=== PATIENT | male | born 2000 | race Two or more races ===

== ENCOUNTER 2023-01-18 12:48 | Emergency (ER) | payer MEDICAID, SELFPAY ==
--- NOTE | ~2023-01-18 | US_ITS ---
EXAMINATION: US SCROTUM CLINICAL INFORMATION: Testicular pain rule out torsion. COMPARISON: None available. TECHNIQUE: A sonogram of the scrotum was performed assessing izquierdo-scale appearance and color Doppler flow. Spectral Doppler analysis of the arterial and venous flow were performed in the testes bilaterally. FINDINGS: RIGHT: Right testicle measures 3.9 x 1.9 x 3.3 cm, volume 13 mL. No focal testicular parenchymal lesions are visualized. Spectral Doppler analysis of the arterial and venous flow is normal in the right testis. Right epididymal head is normal in size. Mild varicocele. Right epididymal Doppler flow is normal. LEFT: Left testicle measures 4.4 x 1.8 x 3.1 cm, volume 12.7 mL. No focal testicular parenchymal lesions are visualized. Spectral Doppler analysis of the arterial and venous flow is normal in the left testis. Left epididymal head is normal in size. Mild varicocele. Left epididymal Doppler flow is normal. US/US scrotum doppler IMPRESSION: * Mild bilateral varicoceles. Otherwise normal testicular ultrasound. * No ultrasound evidence of testicular torsion.
--- NOTE | ~2023-01-18 | CT_ITS ---
EXAMINATION: CT abdomen pelvis wo IV con CLINICAL INFORMATION: Reason for Exam hematuria, LLQ pain COMPARISON: No prior CT available for comparison. TECHNIQUE: Multidetector volumetric imaging was performed from the superior aspect of the liver through the pubic symphysis , noncontrasted study. Sagittal and coronal reformatted images were obtained on the technologist's workstation. This CT examination was performed using dose optimization techniques as appropriate, variously including the following: *Automated exposure control *Adjustment of mA and/or kV according to patient size (this includes techniques or standardized protocols for targeted exams where dose is matched to indication/reason for exam; i.e. extremities or head) *Use of iterative reconstruction technique DLP: 438 mGy-cm FINDINGS: LOWER THORAX: Included lung bases are clear. HEPATOBILIARY: No focal hepatic lesions. No biliary ductal dilatation. GALLBLADDER: Gallbladder unremarkable. SPLEEN: Spleen is normal in size. PANCREAS: No focal mass or ductal dilatation. STOMACH AND GASTROINTESTINAL TRACT: Stomach is grossly unremarkable. Mild circumferential wall thickening low attenuation of the descending and sigmoid colon, this is nonspecific CT finding and could be sequela of chronic or subclinical and/or prior colitis. No evidence of acute diverticulitis. No obstruction. Surgical sutures in the cecum probably from prior appendectomy. ADRENALS: No adrenal nodules. KIDNEYS/URETERS: No hydronephrosis, stones or solid mass lesions. URINARY BLADDER: Partially decompressed. PELVIC VISCERA: Unremarkable PERITONEUM: No free air or fluid. LYMPH NODES: No lymphadenopathy. VASCULAR:Abdominal aorta normal in size, no aneurysm found. BONES, ABDOMINAL WALL AND SOFT TISSUES: Age-appropriate changes of the spine and skeletal system, no destructive osteolytic or osteosclerotic bone lesion found CT/CT abdomen pelvis wo IV con IMPRESSION: * No CT evidence of kidney stones or hydronephrosis. * Mild circumferential wall thickening low attenuation of the descending and sigmoid colon, this is nonspecific CT finding and could be sequela of chronic or subclinical and/or prior colitis. No evidence of acute diverticulitis. * Surgical sutures in the cecum probably from prior appendectomy.
[2023-01-18 13:06] VITALS: BP 130/87; PULSE 104; RESP 18; TEMP 36.8; O2SAT 98; BMI 25.9
--- NOTE | 2023-01-18 13:06 | ED_ITS ---
HPI - General Adult General Chief complaint: Abdominal Pain Stated complaint: Blood in urine/lower abd pain Time Seen by Provider: 01/18/23 13:33 Source: patient Mode of arrival: ambulatory Limitations: no limitations History of Present Illness HPI narrative: 22-year-old male previously healthy here with complaints of left lower abdominal pain which radiates the left testicle with waking this morning with hematuria. Patient denies any dysuria, urinary frequency, urinary urgency, penile discharge, rashes, lesions, fevers, chills, vomiting, diarrhea, constipation. Patient reports that he has had a new sexual partner and he would like to be tested for STDs. Related Data Previous Rx's Medication Instructions Recorded ibuprofen 600 mg tablet 600 mg PO Q8H PRN pain #30 tabs 01/18/23 tamsulosin 0.4 mg capsule (Flomax) 0.4 mg PO DAILY #30 caps 01/18/23 Allergies Allergy/AdvReac Type Severity Reaction Status Date / Time morphine Allergy Intermediate Unknown Verified 01/18/23 13:04 Review of Systems 2 Review of Systems: Yes all other systems are reviewed and are negative Constitutional: Constitutional: Reports no additional constitutional complaints, Denies body ache(s), Denies chills, Denies fever(s), Denies headache(s) and Denies weakness Eyes: Eyes: Reports no additional eye complaints and Denies change in vision ENT: Reports system reviewed and no additional complaints, except as documented, Denies dizziness, Denies headache(s), Denies nasal congestion, Denies nasal discharge and Denies neck pain Cardiovascular: Cardiovascular: Reports no additional cardiovascular complaints, Denies chest pain, Denies leg edema and Denies dyspnea Respiratory: Respiratory: Reports no additional respiratory complaints, Denies cough and Denies dyspnea Gastrointestinal: Gastrointestinal: Reports no additional gastrointestinal complaints, Reports abdominal pain, Denies diarrhea, Denies nausea and Denies vomiting Genitourinary: Genitourinary: Reports hematuria, Reports testicular pain and Denies urinary incontinence Musculoskeletal: Musculoskeletal: Reports no additional musculoskeletal complaints, Denies back pain, Denies arthralgias, Denies joint swelling, Denies neck pain, Denies numbness and Denies tingling Integumentary/Breasts: Skin/Breast: Reports system reviewed and no additional complaints, except as docu and Denies rash Neurologic: Reports system reviewed and no additional complaints, except as documented, Denies Abnormal speech present, Denies dizziness, Denies headache(s), Denies numbness, Denies tingling and Denies weakness PMFSH Past Medical History Attestation statement: The following information was validated with the patient. Source: old records reviewed and nursing notes reviewed Social History Social History Advance Directives: No Advance Directives Information Provided: No Physical Exam ED Vital Signs: Vital Signs - 24 hr 01/18/23 13:06 Temperature 98.2 F Pulse Rate 104 H Respiratory Rate 18 Blood Pressure 130/87 Pulse Oximetry 98 Oxygen Delivery Method Room Air BMI result Body Mass Index 25.9 Const General: cooperative, healthy appearing, comfortable and no acute distress Orientation/consciousness: patient oriented x3 Limitations: no limitations HENMT Head: Yes normal to inspection Ears: hearing grossly normal bilaterally General nose exam: Normal external nose present Face and sinus: Yes normal facial exam Mouth: Normal oral and palatal mucosa present Throat: Yes posterior oropharynx normal Eyes General: appearance normal, both eyes and all related structures Pupils: Equal, round and reactive pupils present Neck Neck: Yes normal visual inspection Chest Chest palpation & inspection: normal inspection of the chest Resp Effort & Inspection: normal respiratory effort Auscultation: clear to auscultation bilaterally Cardio Rate: regular rate Rhythm: regular rhythm Peripheral pulses: Peripheral pulses 2+ throughout GI Inspection: Yes normal to inspection Palpation (GI): Soft to palpation and Tenderness to palpation present (GI) (Mild tenderness left lower quadrant with no rebound or guarding) Auscultation: normal bowel sounds Male General Exam: Yes normal external exam Scrotum: scrotum normal Testes: testicular tenderness (Mild left) Back/Spine/Pelvis Thoracic/Lumbar Spine: thoracic and lumbar spine normal to inspection Skin General skin exam: no rashes or lesions noted Neuro General: patient oriented x3, no focal motor deficits and normal sensation to monofilament Cranial nerves: Yes Equal, round and reactive pupils present Cognition (Neuro): normal cognition Speech: No Abnormal speech present Gait exam (Neuro): Normal gait present Motor exam (neuro): 5/5 motor strength present throughout Extrem General: Yes normal to inspection Course Course Course Narrative: This is an RME: Additional HPI, ROS, PE not included below will be deferred to primary provider. This is a [id number]-male, with a hx of asthma, presenting to the emergency department for evaluation of hematuria and left lower quadrant pain since this morning. Patient states that he woke up with left testicular pain, and right lower quadrant pain. He states that he urinated and noticed blood in his urine. He endorses some nausea. Admits that he drank half a gallon of bryce last night. No testicular swelling. He is sexually active. Plan: Labs, UA, CT abdomen pelvis Reevaluation(s) Reevaluation #1: . The patient's reports with him including the you ultrasound Nathan labs and CT scan. There was no obvious obstructive uropathy during the CT scan, however there was lot of blood in the urine. He reports seeing ?black particles when I urinated while in the ED. ? it is possible he passed a kidney stone in an apartment. He is currently not experiencing any pain. He is still for discharge at this time. Time: 18:42 Medications Administered Discontinued Medications Generic Name Dose Route Start Last Admin Trade Name Pieter PRN Reason Stop Dose Admin Ceftriaxone Sodium 500 mg/ 0 mg 01/18/23 13:55 01/18/23 14:49 Lidocaine HCl 1 ml IM 01/18/23 13:56 1 kit ONCE ONE Administration Ketorolac Tromethamine 30 mg 01/18/23 13:55 01/18/23 14:49 Ketorolac Tromethamine 30 Mg/Ml Vial IM 01/18/23 13:56 30 mg ONCE ONE Administration Medical Decision Making Medical Decision Making [facility] Narrative: 22-year-old male previously healthy here with complaints of left lower abdominal pain which radiates the left testicle with waking this morning with hematuria.? Patient denies any dysuria, urinary frequency, urinary urgency, penile discharge, rashes, lesions, fevers, chills, vomiting, diarrhea, constipation.? Patient reports that he has had a new sexual partner and he would like to be tested for STDs. On exam patient has some tenderness in left lower quadrant as well as the left testicle. There is no rebound or guarding. Will obtain labs, UA, CT/NG, CT abdomen and pelvis, testicular ultrasound Patient wants to prophylactically treated for STI. I will give him ceftriaxone 500 mg IM Differential Diagnosis Differential Diagnoses: The differential diagnosis associated with the presentation includes STI, UTI, renal colic, testicular torsion, epididymitis Admission/Observation Consideration of admission/observation: Escalation of care including admission/observation considered Lab Data MDM Lab Attestation statement: I reviewed the patient's lab results. 01/18/23 13:57 01/18/23 13:57 Labs: Lab Results 01/18/23 01/18/23 01/18/23 Range/Units 13:10 13:53 13:57 WBC 7.0 (4.8-10.8) X10*3/uL RBC 5.57 (4.60-5.80) X10*6/uL Hgb 14.8 (14.0-18.0) g/dl Hct 45.0 (42.0-52.0) % MCV 80.8 (80.0-98.0) fL MCH 26.6 L (27.0-33.0) pg MCHC 32.9 (31.0-36.0) g/dl RDW 13.9 (11.0-16.0) % Plt Count 466 H (160-400) X10*3/uL MPV 8.8 L (9.4-12.4) fL Immature Gran % (Auto) 0.4 (0.0-0.4) % Neut % (Auto) 60.4 (45-73) % Lymph % (Auto) 28.4 (20-40) % [place] % (Auto) 9.1 (2-11) % Eos % (Auto) 1.0 (0-4) % Baso % (Auto) 0.7 (0-2) % Lymph # (Auto) 2.0 (1.2-4.9) X10*3/uL [place] # (Auto) 0.6 (0.1-1.2) X10*3/uL Eos # (Auto) 0.1 (0.0-0.4) X10*3/uL Baso # (Auto) 0.1 (0.0-0.2) X10*3/uL Abs Immat Gran (auto) 0.03 (0.00-0.03) X10*3/uL Absolute Neuts (auto) 4.2 (2.0-8.3) x10*3/uL Absolute Nucleated RBC 0.000 (0.0-0.012) X10*3/uL Nucleated RBC % (auto) 0.0 (0.0-0.2) /100WBC Sodium 142 (135-145) mmol/L Potassium 4.4 (3.3-5.1) mmol/L Chloride 109 H (96-108) mmol/L Carbon Dioxide 24 (22-29) mmol/L Anion Gap 13 (12-20) BUN 14 (9-16) mg/dL Creatinine 0.87 (0.5-1.4) mg/dL Estim Creat Clear Calc 116.8 Estimated GFR > 60 Random Glucose 97 (60-115) mg/dL Calcium 9.3 (8.4-10.2) mg/dL Total Bilirubin 0.3 (0.0-1.0) mg/dL Direct Bilirubin 0.1 (0.0-0.5) mg/dL AST 22 (5-37) U/L ALT 36 (0-40) U/L Alkaline Phosphatase 63 (39-117) U/L Total Protein 7.2 (6.5-8.0) g/dL Albumin 4.6 (3.5-5.0) g/dL Lipase 9 (8-78) U/L Urine Color RED Urine Appearance Hazy Urine pH 7.0 (5.0-9.0) Ur Specific [place] 1.010 (1.005-1.025) Urine Protein 30 (1+) H (Neg-Trace) mg/dL Urine Glucose (UA) Negative (Negative) mg/dL Urine Ketones Negative (Negative) mg/dL Urine Blood Large (3+) H (Negative) Urine Nitrite Negative (Negative) Ur Leukocyte Esterase Negative (Negative) Urine RBC >20 H (0-2) /HPF Urine WBC 6-10 H (0-5) /HPF Ur Squamous Epith Cells 0-2 (0-2) /HPF Urine Bacteria None Seen (None Seen) Hyaline Casts 0-2 (0-2) /LPF Chlam trachomat DNA PCR NOT DETECTED (Not Detect.) N.gonorrhoeae DNA (PCR) NOT DETECTED (Not Detect.) Independent Interpretation I performed an independent interpretation of an: Ultrasound and CT Scan Radiology Impression Discussion of test interpretation with radiology: I have reviewed the radiologist's reading. Independent Historian Clinical information obtained from an independent historian. History obtained from or confirmed by: Friend Discharge Plan Discharge Clinical Impression: Calculus of kidney Patient Disposition: Home, Self-Care Instructions: Kidney Stones (ED) Additional Instructions: Labs are reassuring. Your urine shows blood which is not uncommon with a kidney stone. Your testing for gonorrhea and chlamydia are negative. Take medications as prescribed Return for worsening pain, vomiting, fever greater than 100.4 Prescriptions: New tamsulosin [Flomax] 0.4 mg capsule 0.4 mg PO DAILY Qty: 30 0RF ibuprofen 600 mg tablet 600 mg PO Q8H PRN (Reason: pain) Qty: 30 0RF Referrals: Prashanth Luna MD [Physician] - 1 week
[2023-01-18 13:20] LABS: Appearance Urine Hazy; Color Urine RED; Glucose Urine UA Negative (Negative); Leukocyte Esterase Urine Negative (Negative); Nitrite Urine Negative (Negative); UMIC TRIGGER UACC YES; Urine Blood Large (3+) (Negative); Urine Ketones Negative (Negative); Urine Protein 30 (1+) mg/dL (Neg-Trace)
[2023-01-18 13:34] LABS: Bacteria Urine None Seen (None Seen); Hyaline Casts Urine 0-2 /LPF (0-2); RBC Urine >20 /HPF (0-2); Squamous Epithelial Cell Urine 0-2 /HPF (0-2); UACC Culture Trigger YES
[2023-01-18 14:01] LABS: MANUAL DIFF FLAG NO
[2023-01-18 14:02] LABS: Basophils Absolute Auto 0.1 X10*3/uL (0.0-0.2); Basophils Percent Auto 0.7 % (0-2); Eosinophils Absolute Auto 0.1 X10*3/uL (0.0-0.4); Hemoglobin 14.8 g/dl (14.0-18.0); Imm Gran Abs Auto 0.03 X10*3/uL (0.00-0.03); Imm Gran Pct Auto 0.4 % (0.0-0.4); Lymphocytes Percent Auto 28.4 % (20-40); Mean Corpuscular HGB Conc 32.9 g/dl (31.0-36.0); Mean Corpuscular Hemoglobin 26.6 pg (27.0-33.0); Mean Corpuscular Volume 80.8 fL (80.0-98.0); Mean Platelet Volume 8.8 fL (9.4-12.4); Monocytes Absolute Auto 0.6 X10*3/uL (0.1-1.2); Monocytes Percent Auto 9.1 % (2-11); Neutrophils Absolute Auto 4.2 x10*3/uL (2.0-8.3); Neutrophils Percent Auto 60.4 % (45-73); Platelet Count 466 X10*3/uL (160-400); Red Blood Count 5.57 X10*6/uL (4.60-5.80); Red Cell Distribution Width 13.9 % (11.0-16.0)
[2023-01-18 14:17] LABS: Alanine Aminotransferase 36 U/L (0-40); Albumin Level 4.6 g/dL (3.5-5.0); Alkaline Phosphatase 63 U/L (39-117); Anion Gap 13 (12-20); Aspartate Amino Transferase 22 U/L (5-37); Bilirubin Direct 0.1 mg/dL (0.0-0.5); Bilirubin Total 0.3 mg/dL (0.0-1.0); Blood Urea Nitrogen 14 mg/dL (9-16); Calcium 9.3 mg/dL (8.4-10.2); Carbon Dioxide 24 mmol/L (22-29); Chloride 109 mmol/L (96-108); Creatinine Clr Calc Pharmacy 116.8; Estimated Glomerular Filt Rate > 60; Glucose Random 97 mg/dL (60-115); Lipase 9 U/L (8-78); Potassium 4.4 mmol/L (3.3-5.1); Sodium 142 mmol/L (135-145); Total Protein 7.2 g/dL (6.5-8.0)
[2023-01-18] MEDS: cefTRIAXone sodium 500 MG, Lidocaine HCl 1 % MPF 1 ML IM (14:49)
[2023-01-18] MEDS: Ketorolac Tromethamine 30 MG/ML VIAL IM (14:49)
--- NOTE | 2023-01-18 15:28 | PC.NURSE ---
patient medicated per MAR, resting comfortably on stretcher, offers no complaints at this time
[2023-01-18 15:46] LABS: CT PCR NOT DETECTED (Not Detect.); NG PCR NOT DETECTED (Not Detect.)
[2023-01-18 19:08] VITALS: BP 136/89; PULSE 85; RESP 18; O2SAT 99
== END 2023-01-18 19:10 | disposition home or self-care (01) ==
PROVIDERS: Physician Assistant Medical; Emergency Provider Emergency Medicine
DX: N20.0 Calculus of kidney (principal); R10.32 Left lower quadrant pain; Z20.2 Contact with and (suspected) exposure to infections with a predominantly sexual mode of transmission
CPT/HCPCS: 0353U; 36415; 74176; 80048; 80076; 81001; 83690; 85025; 87086; 93975; 96372; 99283; 99284; J0696; J1885

== ENCOUNTER 2024-01-31 14:51 | Emergency (ER) | payer MEDICAID, SELFPAY ==
[2024-01-31 15:03] VITALS: BP 151/85; PULSE 106; RESP 18; TEMP 36.9; O2SAT 99; BMI 25.7
--- NOTE | 2024-01-31 15:03 | ED.MALEGU ---
HPI - Male Genitourinary General Chief complaint: Urogenital-Male Stated complaint: bumps in groin area Time Seen by Provider: 01/31/24 16:01 Source: patient Mode of arrival: ambulatory Limitations: no limitations History of Present Illness ED Provider: Annalisa Murillo NP HPI Narrative: Patient is a 23-year-old male who presents emergency department for evaluation. He reports that he noticed 5 small red bumps to the tip of his penis this morning noticed this while showering the area was very sensitive and burning, knee has associated dysuria. He denies penile discharge. Denies testicular pain or swelling. He endorses actively engaging in sexual intercourse, denies any known exposure, nor visualized concerning lesions on his partner. Denies any history of STI Related Data Previous Rx's ?Medication ?Instructions ?Recorded ibuprofen 600 mg tablet 600 mg PO Q8H PRN pain #30 tabs 01/18/23 tamsulosin 0.4 mg capsule (Flomax) 0.4 mg PO DAILY #30 caps 01/18/23 valacyclovir 1 gram tablet 1,000 mg PO BID #14 tabs 01/31/24 Allergies Allergy/AdvReac Type Severity Reaction Status Date / Time morphine Allergy Intermediate Unknown Verified 01/31/24 15:05 Review of Systems Review of Systems: Yes all other systems are reviewed and are negative PMFSH Past Medical History Attestation statement: The following information was validated with the patient. Source: old records reviewed Social History Social History Advance Directives: No Advance Directives Information Provided: No Do you have a plan to hurt others: No Plan Physical Exam Vital Signs: Vital Signs: Last Vital Signs Temp 98.5 F 01/31/24 15:03 Pulse 106 H 01/31/24 15:03 Resp 18 01/31/24 15:03 BP 151/85 H 01/31/24 15:03 Pulse Ox 99 01/31/24 15:03 O2 Del Method Room Air 01/31/24 15:03 BMI result Body Mass Index 25.7 Appearance: Alert.?Oriented to person, place and time. No acute distress.?Normal affect. CVS: Heart sounds normal. Normal heart rate and rhythm.? Pulses normal.?? Respiratory: No respiratory distress.? Lung sounds clear to auscultation bilaterally?? Urogenital: Performed with concrete gun operator ED inventory technician Nicholas - on the glans penis there are proximally 5 pinpoint erythematous papular lesions, not clearly visible vesicle very small without apparent open ulceration, tenderness on palpation Skin: Skin warm and dry.? Normal skin color.? Neuro: Moves all extremities spontaneously. Sensation intact bilaterally. Ambulates with normal steady gait. Course Course Course Narrative: This is a Rapid Medical Examination (RME) performed by Carolina Arias PA-C in triage. Full HPI, ROS, assessment and treatment plan per primary provider in the Main ED. 23 yo male here for eval of bumps to the tip of his penis which he noticed this morning. states the area is sensitive when the shower water runs over it. associated dysuria. no penile discharge. admits to concern for STD. no fever, chills, penile discharge. + area not examined d/t privacy Plan: UA, CTNG, further evaluation Medications Administered Discontinued Medications Generic Name Dose Route Start Last Admin Trade Name Manpreetq PRN Reason Stop Dose Admin Valacyclovir HCl 1,000 mg 01/31/24 16:28 01/31/24 16:34 Valacyclovir Hcl 1,000 Mg Tablet PO 01/31/24 16:29 1,000 mg ONCE ONE Administration Medical Decision Making Medical Decision Making MDM Narrative: Patient is a 23-year-old male who presents emergency department for evaluation of dysuria and red painful bumps on the glans penis as per HPI physical exam portion of this note. Urogenital examination without evidence of testicular swelling or involvement, no active drainage from the urethral meatus. There are approximately 5 very fine red papules that are tender to touch, not clearly vesicle lesions. Not consistent with syphilis chancre. Concern at this time for early herpes simplex virus presentation given history and current physical examination. I did attempt to send viral swab for this lesion though as noted there is no open ulceration. Discussed with patient the likelihood of false negative testing for HSV with lesion as well as serum serologies. Urinalysis obtained to urinary tract infection and is free from infection signs or microscopic hematuria,, testing for chlamydia and gonorrhea has been sent, current presentation is most concerning for HSV for which I will initiate valacyclovir, remainder prescription was sent to pharmacy. We did discuss the potential for future outbreaks an appropriate approach to treatment, advised establishing care with a primary care doctor. Reviewed worrisome signs and symptoms that would warrant re-evaluation emergency department. All questions answered. Differential Diagnosis Differential Diagnoses: The differential diagnosis associated with the presentation includes (See narrative above) Lab Data MDM Lab Attestation statement: I reviewed the patient's lab results. (See narrative above) Labs: Lab Results 01/31/24 Range/Units 15:37 Urine Color Yellow Urine Appearance Clear Urine pH 5.5 (5.0-9.0) Ur Specific [place] 1.020 (1.005-1.025) Urine Protein Negative (Neg-Trace) mg/dL Urine Glucose (UA) Negative (Negative) mg/dL Urine Ketones Negative (Negative) mg/dL Urine Blood Negative (Negative) Urine Nitrite Negative (Negative) Ur Leukocyte Esterase Negative (Negative) External Record Review External record reviewed: Outpatient record Prescription Management I considered prescription management with: Antiviral Discharge Plan Discharge Clinical Impression: Genital herpes simplex Patient Disposition: Home, Self-Care Instructions: Genital Herpes Simplex (ED), Sexually Transmitted Diseases (ED) Additional Instructions: As discussed, your presentation today is most concerning for early presentation of herpes simplex virus. Testing was sent from the lesion to the lab, this will take a few days to process, however as discussed there is sometimes a false negative result with this type of testing, and given its early presentation without any ulceration or break through the skin I would still recommend continuing treatment if symptomatic even if the test result is negative. Testing for chlamydia and gonorrhea was sent as well, should there be any positive test result for this he will be contacted from the hospital. Prescription for Valtrex was sent to your pharmacy, please be certain that you are staying well hydrated drinking plenty of water while taking this medication. This includes 8-12 cups of fluid daily (8 oz each cup). Side effects from this medication can include headaches, dizziness, nausea and vomiting usually which are worsened if you are dehydrated Refrain from sexual intercourse while taking the medication for 1 week following. You should advise any recent sexual partners as well to that they may seek appropriate treatment accordingly Prescriptions: New valacyclovir 1 gram tablet 1,000 mg PO BID Qty: 14 0RF No Action tamsulosin [Flomax] 0.4 mg capsule 0.4 mg PO DAILY Qty: 30 0RF ibuprofen 600 mg tablet 600 mg PO Q8H PRN (Reason: pain) Qty: 30 0RF Referrals: Physician,None [Primary Care Provider] - Print Language: Kazakh
[2024-01-31 15:46] LABS: Appearance Urine Clear; Color Urine Yellow; Glucose Urine UA Negative (Negative); Leukocyte Esterase Urine Negative (Negative); Nitrite Urine Negative (Negative); PH 5.5 (5.0-9.0); Urine Blood Negative (Negative); Urine Ketones Negative (Negative); Urine Protein Negative (Neg-Trace)
[2024-01-31] MEDS: valACYclovir HCL 1,000 MG TABLET 1000 MG PO (16:34)
[2024-01-31 16:51] VITALS: BP 151/85; PULSE 106; RESP 18; TEMP 36.9; O2SAT 99
[2024-02-01 13:26] LABS: CT PCR NOT DETECTED (Not Detect.); NG PCR NOT DETECTED (Not Detect.)
== END 2024-01-31 16:51 | disposition home or self-care (01) ==
PROVIDERS: Nurse Practitioner Family; Physician Assistant Medical; Emergency Provider Emergency Medicine Emergency Medical Services
DX: A60.01 Herpesviral infection of penis (principal)
CPT/HCPCS: 36415; 81003; 87255; 87491; 87591; 99282; 99283